=== PATIENT | female | born 1930 | race Caucasian/White ===

== ENCOUNTER 2018-08-03 10:52 | Inpatient (IN) ==
[2018-08-03] MEDS ORDERED: NS 1,000 ML IV ONE (11:15)
[2018-08-03 11:48] LABS: BASO# 0.04 X1000 (0.0-0.2); BASO% 0.4 % (0.0-0.8); EOS# 0.35 X1000 (0.0-0.7); EOS% 3.2 % (0.0-10.0); HEMATOCRIT 43.9 % (37.0-47.0); HEMOGLOBIN 14.4 g/dL (12.0-16.0); IMM GRAN# 0.03 X1000 (0.0-0.04); IMM GRAN% 0.3 % (0.0-0.5); LYMPH# 1.23 X1000 (1.2-3.4); LYMPH% 11.1 % (20.5-51.1); MCH 26.4 PG (27-31); MCHC 32.8 g/dL (33-37); MCV 80.4 FL (81-99); MONO# 1.41 X1000 (0.11-0.59); MONO% 12.7 % (1.7-9.3); MPV 12.1 FL (7.4-10.4); NEUT# 8.04 X1000 (1.4-6.5); NEUT% 72.3 % (42.2-75.2); PLT 144 X1000 (130-400); RBC 5.46 XMIL (4.2-5.4); RDW 18.5 % (11.5-14.5)
[2018-08-03 11:59] LABS: ALBUMIN 3.3 g/dL (3.5-5.0); CALCIUM 8.5 mg/dL (8.8-10.2); CREATININE 1.1 mg/dL (0.5-0.9); POTASSIUM 3.3 mmol/L (3.5-5.1); TOTAL BILIRUBIN 0.8 mg/dL (0.20-1.00)
--- NOTE | 2018-08-03 12:14 | Diag Imaging Result Doc PS360 ---
EXAM: CHEST-2 VIEWS HISTORY: weakness TECHNIQUE: Chest two views COMPARISON: 07/24/2018 FINDINGS: The lungs are well expanded. The heart is not enlarged. The vessels are not distended. There are mild increased interstitial markings similar to the prior exam and believed to be fibrosis. No pleural effusions. Moderate scoliosis. Severe atherosclerosis. IMPRESSION: Stable chest. Electronically signed by Fernando Loyola 08/03/2018 12:11 PM
[2018-08-03 13:23] LABS: BILIRUBIN URINE NEGATIVE (NEGATIVE); BLOOD URINE 2+ (NEGATIVE); CLARITY SLIGHTLY CLOUDY (CLEAR); COLOR YELLOW; GLUCOSE URINE NEGATIVE (NEGATIVE); KETONE URINE NEGATIVE (NEGATIVE); URINE SOURCE CLEAN CATCH
--- NOTE | 2018-08-03 13:23 | EKG Report ---
Test Performed on : 08/03/2018 11:19:46 AM Test Reason : weakness Blood Pressure : / mmHG Vent. Rate : 129 BPM Atrial Rate : 326 BPM P-R Int : 000 ms QRS Dur : 082 ms QT Int : 336 ms P-R-T Axes : 000 007 044 degrees QTc Int : 492 ms Atrial fibrillation. with rapid ventricular response. Nonspecific T wave abnormality Abnormal ECG No previous ECGs available Unconfirmed Result
[2018-08-03 13:24] LABS: LEUKOCYTES URINE 2+ (NEGATIVE); NITRITE URINE NEGATIVE (NEGATIVE); PROTEIN URINE 1+(30 mg/dL) mg/dL (NEGATIVE); UROBILINOGEN URINE 1 mg/dL
[2018-08-03 13:31] LABS: URINE BACTERIA 3+ /HFP; URINE EPITHELIAL CELLS >10 /HPF (<10); URINE WBC 20-40 /HPF (<10)
[2018-08-03 13:32] LABS: URINE SMALL ROUND CELLS TRANSITIONAL PRESENT; URINE YEAST PRESENT /HPF
--- NOTE | 2018-08-03 13:34 | Diag Imaging Result Doc PS360 ---
EXAM: LUMBAR SPINE 2-VIEWS INDICATION: lower back pain TECHNIQUE: 3 views COMPARISON: None. FINDINGS: There is advanced degenerative disc disease at every lumbar level with loss of disc space height and marginal osteophyte formation. There is also multilevel facet arthropathy that is worst at the lower levels. There is associated dextroscoliosis. There is no discrete fracture, subluxation, or significant intrinsic osseous lesion, otherwise. There is extensive atherosclerotic calcification. Surrounding soft tissues are essentially unremarkable, otherwise. 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 No evidence of acute osseous abnormality. Electronically signed by Kj Cavazos 08/03/2018 1:32 PM
[2018-08-03] MEDS ORDERED: CARDIZEM IV ONE (14:17)
[2018-08-03] MEDS ORDERED: ROCEPHIN 1 GM in NS 50 ML IV ONE (14:19)
--- NOTE | 2018-08-03 14:23 | PROVIDER DOCUMENTATION ---
This chart was entered by Jordyn Turner Scribe, acting as scribe for Danis Narvaez CRNP. HPI-General Adult - General Chief Complaint: Weakness Stated Complaint: FALL Time Seen by Provider: 08/03/18 11:08 Source: patient Allergies/Adverse Reactions: Patient Allergies Allergy/AdvReac Type Severity Reaction Status Date / Time Sulfa (Sulfonamide Allergy Unknown Verified 08/03/18 11:46 Antibiotics) Home Medications: Home Medication List Medication Instructions Recorded Confirmed Last Taken Type Aspirin 1 tab PO DAILY 08/03/18 08/03/18 Unknown History Buspirone [Buspar] 1 tab PO BID 08/03/18 08/03/18 Unknown History Clonidine HCl 1 tab PO Q8H PRN 08/03/18 08/03/18 Unknown History Diphenoxylate/Atropine [Lomotil] 1 tab PO Q8H PRN 08/03/18 08/03/18 Unknown History Hydrochlorothiazide 1 cap PO DAILY PRN 08/03/18 08/03/18 Unknown History Levothyroxine [Synthroid] 1 tab PO DAILY 08/03/18 08/03/18 Unknown History Lisinopril 1 tab PO DAILY 08/03/18 08/03/18 Unknown History Promethazine [Phenergan] 0.5 - 1 tab PO Q8H PRN 08/03/18 08/03/18 Unknown History Simvastatin 40 mg PO QPM 08/03/18 08/03/18 Unknown History - History of Present Illness -Gen Adult Nature of Presenting Problems: 88 yof presents to the ed with c/o weakness, nausea and diarrhea and weight loss. pt sts fell 2 days prior Location of Pain/Injury: reports: generalized (weakness) Pain Radiation: reports: no radiation Quality of Pain: reports: aching Severity: reports: moderate Onset/Duration: reports: other (3 weakness) Timing: reports: still present Context/Activities at Onset: reports: light activity Modifying Factors: improves with: nothing Associated Symptoms: reports: diarrhea, loss of appetite, muscle aches, nausea, weakness. denies: back/neck pain, chest pain, fatigue, fever/chills, shortness of breath Similar Symptoms Previously?: Yes Recently seen or treated by another doctor?: No Review of Systems - Adult - REVIEW OF SYSTEMS - ADULT Constitutional: reports: see HPI, fatique, weight loss (25lb in 2 months) Eyes: reports: no symptoms reported Ears, Nose, Mouth & Throat: reports: no symptoms reported Cardiovascular: denies: chest pain, palpitations Respiratory: denies: cough, shortness of breath, wheezing Gastrointestinal: reports: see HPI, diarrhea, nausea. denies: abdominal pain Genitourinary: reports: no symptoms reported Musculoskeletal: reports: see HPI, muscle weakness. denies: back pain, neck pain Integumentary: reports: no symptoms reported Neurological: denies: dizziness/vertigo, headache/migraines Psychiatric: reports: no symptoms reported Endocrine: reports: no symptoms reported Hematologic/Lymphatic: reports: no symptoms reported Allergic/Immunologic: reports: no symptoms reported All Other Systems: Reviewed and Negative Past History - Adult - PAST MEDICAL HISTORY-ADULT Review of Records: reports: Old Records Reviewed, Nursing Assessment Review, Medications Reviewed, Social history reviewed & non-contributory. Major Childhood Illnesses: reports: denies history Cardiovascular: reports: HTN, hyperlipidemia Respiratory: reports: asthma Gastrointestinal: reports: GERD Obstetrical/Gynecological: reports: denies history Genitourinary: reports: denies history Musculoskeletal: reports: denies history Neurological: reports: denies history Endocrine/Immune: reports: thyroid disorder, other (AAA) Other Conditions: reports: denies history - PRIOR SURGERIES/PROCEDURES Surgical/Procedure History: reports: appendectomy - IMMUNIZATION STATUS Childhood Immunizations: See Nurse Assessment Flu Vaccine: See Nurse Assessment - FAMILY HISTORY Family History: reviewed, not pertinent - SOCIAL HISTORY Smoking: denies Substance Use: denies Living Situation: family Physical Exam-General - PHYSICAL EXAM-ADULT Initial Vital Signs Reviewed: Yes - CONSTITUTIONAL General Appearance: alert, no apparent distress, thin. negative: appears well - EYES Eyes: PERRL/EOMI, pink conjunctivae - HEAD, EARS, NOSE, MOUTH & THROAT HENMT: moist mucous membranes, normal ENT inspection - NECK Neck: non-tender, full range of motion, supple, normal inspection - RESPIRATORY Respiratory: chest non-tender, lungs clear, normal breath sounds - CARDIOVASCULAR Cardiovascular: normal peripheral pulses, irregularly irregular (115) - GASTROINTESTINAL (ABDOMEN) Abdominal Exam: normal bowel sounds, non tender, soft - LYMPHATIC Lymphatic: no adenopathy - MUSCULOSKELETAL Back Exam: scoliosis, vertebral tenderness (lumbar) Extremity: normal range of motion, non-tender, normal inspection - SKIN Integumentary: normal color, normal turgor, warm/dry - NEUROLOGIC Neurologic: grossly normal, no motor/sensory deficits - PSYCHIATRIC Psych/Mental Status: normal mood/affect, normal thought content, normal thought process, oriented x 3 Progress - PLAN OF CARE/RESULTS Progress/Plan/Lab Results: Vital Signs - 8 hr 08/03/18 10:57 Temperature 97.1 F L Pulse Rate 115 H Respiratory Rate 18 Blood Pressure 99/72 O2 Sat by Pulse Oximetry 96 Orders Category Date Time Status Cardiac Monitoring DIRECTED Care 08/03/18 11:26 Active Nursing- Obtain EKG once Care 08/03/18 11:13 Active Saline Loc NOW Care 08/03/18 11:27 Active CHEST-2 VIEWS [RAD] Stat Exams 08/03/18 11:13 Ordered LUMBAR SPINE 2-VIEWS [RAD] Stat Exams 08/03/18 11:13 Ordered CBC WITH DIFF [HEME] Stat Lab 08/03/18 11:27 Ordered COMPREHENSIVE METABOLIC PANEL [CHEM] Stat Lab 08/03/18 11:[address] W/POSS RFLX CULT [URINALYSIS] Stat Lab 08/03/18 11:13 Uncollected 0.9% Sodium Chloride Inj [Ns] 1,000 ml Med 08/03/18 11:15 Active IV 125 mls/hr EKG [EKG] Stat Ther 08/03/18 11:13 Ordered Result Diagrams: 08/03/18 11:20 08/03/18 11:20 - REASSESSMENT Reassessment #1 Time Reassessed: 13:17 Status: improving Reassessment #2 Time Reassessed: 13:47 (explained results with pt and family. Family reports pt is having frequent diarrhea x 1.5 month. Reports she is taking Lomotil with no relief. Denies any recent antibiotic use) Reassessment #3 Time Reassessed: 14:18 (Made aware of possible admission. Pt and family agree) - EKG 1 Time of EKG reading by physician:: 11:19 EKG Read and Signed by:: Brannon Tate EKG Interpretation (*Must complete 3 of following elements*): Abnormal Rate: 129 Rhythm: afib with rvr [place]: normal QRS: normal [place] Interval: normal Comments: nonspecific T wave abnormality - XRAY 1 XRAY: Bilateral XRAY Study: Chest Impression: See EMR Report (The lungs are well expanded. The heart is not enlarged. The vessels are not distended. There are mild increased interstitial markings similar to the prior exam and believed to be fibrosis. No pleural effusions. Moderate scoliosis. Severe atherosclerosis. IMPRESSION: Stable chest. Electronically signed by Fernando Loyola 08/03/2018 12:11 PM) 2 XRAY Study: Lumbar Spine Impression: See EMR Report (There is advanced degenerative disc disease at every lumbar level with loss of disc space height and marginal osteophyte formation. There is also multilevel facet arthropathy that is worst at the lower levels. There is associated dextroscoliosis. There is no discrete fracture , subluxation, or significant intrinsic osseous lesion, otherwise. There is extensive atherosclerotic calcification. Surrounding soft tissues are essentially unremarkable, otherwise. 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 No evidence of acute osseous abnormality. Electronically signed by Kj Cavazos 08/03/2018 1:32 PM) - CONSULTS/PCP/HOSPITALIST Notification #1 *Consult/PCP/Hospitalist*: Dr Tate Time Discussed: 13:40 (concerning results, diarrhea, and weight loss) Consult Disposition: F/U in office #2 Consult: Dr Tate Time Discussed: 14:18 (Concerning afib w/ rvr) Consult Disposition: Admit Departure - Departure Date of Disposition Decision: 08/03/18 Time of Disposition Decision: 14:20 DIAGNOSIS: Atrial fibrillation with RVR UTI (urinary tract infection) Qualifiers: Urinary tract infection type: site unspecified Hematuria presence: without hematuria Qualified Code(s): N39.0 - Urinary tract infection, site not specified Diarrhea Qualifiers: Diarrhea type: unspecified type Qualified Code(s): R19.7 - Diarrhea, unspecified Disposition: ADMITTED INPATIENT 09 Certified Medical Emergency: Emergent Condition: Fair Referrals and Follow-Ups: Brannon Tate MD [Primary Care Provider] - - Critical Care Note This patient required my direct & personal management of CC.: Yes Total Time (mins): 38 Critical Care Statement: This patient required my direct personal management to treat or rule out processes, the absence of which, could potentiallly result in sudden, clinically significant life or limb threatening deterioration. Attestation - Physician/ CASSIDY Attestation Patient care was provided by Advanced Practice Provider:: Yes Advanced Practice Provider:: Danis Narvaez Advanced Practice Provider documentation review:: The Mid-level provider documentation, treatment plan and medical decision making was reviewed by the physician who agrees with all treatment and medical decision making by the MLP. The physician spent face to face time with patient:: No Advanced Practice Provider documentation review:: Supervising physician onsite and consulted in the evaluation and care of this patient. The physician did not have a face to face encounter with the patient. This chart was documented by the indicated scribe, (Jordyn Turner Scribe) and accurately reflects the services I performed and decisions made by me, Danis Narvaez, ADOLFO, as attested by the provider's signature.
[2018-08-03 18:33] LABS: INR 1.27; PROTIME 16.5 Seconds (11.0-16.0); PTT 29.2 Seconds (22.3-41.8)
[2018-08-03] MEDS ORDERED: LANOXIN IV ONE (18:49)
[2018-08-03] MEDS ORDERED: HYDROCHLOROTHIAZIDE PO PRN ×2 (18:50→19:00)
[2018-08-03] MEDS ORDERED: CATAPRES PO PRN (18:50)
[2018-08-03] MEDS ORDERED: PHENERGAN PO PRN (18:50)
[2018-08-03] MEDS ORDERED: CARDIZEM PO ONE (18:53)
[2018-08-03 19:32] LABS: FREE T4 1.89 ng/dL (0.93-1.70); TSH 1.49 uIUmL (0.27-4.20)
[2018-08-03] MEDS: CARDIZEM PO SCH (22:09)
[2018-08-03] MEDS: ZOCOR PO SCH (22:09)
[2018-08-03] MEDS: BUSPAR PO SCH (22:09)
[2018-08-03] MEDS: BENADRYL PO SCH (22:14)
[2018-08-04] MEDS: SYNTHROID PO SCH (06:49)
--- NOTE | 2018-08-04 07:03 | EKG Report ---
Test Performed on : 08/04/2018 00:10:38 AM Test Reason : BRADYCARDIA Blood Pressure : / mmHG Vent. Rate : 051 BPM Atrial Rate : 061 BPM P-R Int : 000 ms QRS Dur : 084 ms QT Int : 458 ms P-R-T Axes : 000 -21 254 degrees QTc Int : 422 ms Atrial fibrillation. with slow ventricular response. ST & T wave abnormality, consider inferior ischemia ST & T wave abnormality, consider anterolateral ischemia Abnormal ECG When compared with ECG of 03-AUG-2018 11:19, (Unconfirmed) Vent. rate has decreased BY 78 BPM T wave inversion more evident in Anterior leads Unconfirmed Result
[2018-08-04] MEDS: PRINIVIL PO SCH (09:55)
[2018-08-04] MEDS: ASPIRIN PO SCH (09:55)
[2018-08-04] MEDS: BUSPAR PO SCH ×2 (09:55→23:40)
[2018-08-04] MEDS: CARDIZEM PO SCH ×2 (09:56→23:40)
[2018-08-04] MEDS ORDERED: LANOXIN PO ONE (19:06)
[2018-08-04] MEDS ORDERED: CARDIZEM CD PO ONE (19:07)
--- NOTE | 2018-08-04 22:33 | ECHO REPORT ---
ORDER DATE: 08/03/2018 MEASUREMENTS: Left ventricular end-diastolic 4.6, septal thickness 1.2, posterior wall thickness 1.1, aortic root 3.5, left atrium 5.1. SUMMARY: 1. Fair quality study. Intravenous echo contrast agent Definity was utilized to enhance endocardial definition. 2. Aortic valve demonstrates very mild sclerotic change with adequate opening on 2-dimensional images. Fair quality study. Intravenous echo contrast agent Definity was utilized to enhance endocardial definition. 3. Aortic valve without evidence of structural abnormality and opens adequately on 2-dimensional images. Peak gradient across aortic valve is less than 10 mmHg. There is mild aortic regurgitation. Mitral and tricuspid valves are without evidence of structural abnormality. There is moderate to severe mitral regurgitation and mild to moderate tricuspid regurgitation. Estimated systolic PA pressure by Doppler is 30 to 35 mmHg suggesting mild pulmonary hypertension. Pulmonic valve not well demonstrated. The aortic root is normal in size. 4. Normal left ventricular chamber size with borderline concentric left hypertrophy is demonstrated. Estimated left ejection fraction approximately 20% in the setting of global hypokinesis. Moderate left atrial enlargement is demonstrated. The right atrium is mildly enlarged. Right ventricle is grossly normal in size with grossly preserved right ventricular systolic function. 5. No pericardial effusion. 6. Appearance of inferior vena cava suggests normal central venous pressure. cc: MD Brannon Jarvis MD
[2018-08-04] MEDS: BENADRYL PO SCH (23:40)
[2018-08-04] MEDS: ZOCOR PO SCH (23:40)
--- NOTE | 2018-08-05 01:57 | EKG Report ---
Test Performed on : 08/04/2018 6:43:17 PM Test Reason : ER Blood Pressure : / mmHG Vent. Rate : 110 BPM Atrial Rate : 119 BPM P-R Int : 000 ms QRS Dur : 088 ms QT Int : 340 ms P-R-T Axes : 000 008 258 degrees QTc Int : 460 ms Atrial fibrillation. with rapid ventricular response. Nonspecific ST and T wave abnormality Abnormal ECG When compared with ECG of 04-AUG-2018 00:11, (Unconfirmed) Vent. rate has increased BY 65 BPM T wave inversion no longer evident in Anterior leads Confirmed by Brannon Tate MD ([id number]) on 08/05/2018 9:45:04 AM
[2018-08-05] MEDS: SYNTHROID PO SCH (06:35)
[2018-08-05] MEDS: CARDIZEM PO SCH (09:28)
[2018-08-05] MEDS: PRINIVIL PO SCH (09:28)
[2018-08-05] MEDS: BUSPAR PO SCH ×2 (09:28→20:53)
[2018-08-05] MEDS: ASPIRIN PO SCH (09:28)
[2018-08-05 10:46] LABS: AGAP 10; ALBUMIN 3.2 g/dL (3.5-5.0); ALKALINE PHOSPHATASE 90 U/L (32-104); BUN 9 mg/dL (8-22); CALCIUM 7.9 mg/dL (8.8-10.2); CHLORIDE 96 mmol/L (98-107); COSMO 283; CREATININE 0.8 mg/dL (0.5-0.9); ESTIMATED GFR > 60; GLUCOSE 117 mg/dL (70-104); GOT 35 U/L (10-30); GPT 22 U/L (10-36); POTASSIUM 2.8 mmol/L (3.5-5.1); SODIUM 142 mmol/L (136-145); TCO2 36 mmol/L (25-35); TOTAL PROTEIN 5.8 g/dL (6.3-8.3)
[2018-08-05] MEDS ORDERED: KLOR-CON PO ONE ×3 (15:08→19:06)
--- NOTE | 2018-08-05 16:07 | EKG Report ---
Test Performed on : 08/05/2018 12:36:13 PM Test Reason : emboli Blood Pressure : / mmHG Vent. Rate : 083 BPM Atrial Rate : 078 BPM P-R Int : 000 ms QRS Dur : 086 ms QT Int : 386 ms P-R-T Axes : 000 -63 254 degrees QTc Int : 453 ms Atrial fibrillation. Left anterior fascicular block Septal infarct , age undetermined ST & T wave abnormality, consider inferolateral ischemia Abnormal ECG When compared with ECG of 04-AUG-2018 18:43, Left anterior fascicular block is now present Inverted T waves have replaced nonspecific T wave abnormality in Inferior leads Unconfirmed Result
--- NOTE | 2018-08-05 19:47 | CONSULTATION ---
DATE OF CONSULTATION: 08/05/2018 CARDIOLOGY CONSULTATION: IMPRESSION: 1. Atrial fibrillation, duration not known. Rate currently controlled. 2. 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 3. Hypertension. 4. Hyperlipidemia. 5. Peripheral vascular disease with history of abdominal aortic aneurysm repair. RECOMMENDATIONS: 1. Given patient's age and limited functional status, conservative cardiovascular management appears most appropriate. 2. Patient's CHADS-Vasc score is 5, consistent with significant thromboembolic risk. The rationale for anticoagulation and potential hazards were discussed with the patient. Recommend switching to Eliquis for long-term anticoagulation. Appropriate dose would appear to be 2.5 mg twice daily given her age over 81 and her weight 100 pounds. 3. Given severe cardiomyopathy, suggest switching from clonidine/diltiazem regimen for blood pressure to carvedilol. HISTORY: This 88-year-old white female with past history of hypertension, hyperlipidemia, peripheral vascular disease, previous abdominal aortic aneurysm repair and remote and previous smoking in the past was recently admitted with symptoms of nausea and fatigue/weakness. She was found to be in atrial fibrillation with moderate tachycardia. She suspects her atrial fibrillation had begun several weeks ago. She is not aware of any palpitations. There has been no angina. There has been no orthopnea. Echocardiography was obtained which indicated a left ejection fraction of 20%. Cardiology is consulted. PAST MEDICAL HISTORY: Includes: 1. Hypertension. 2. Hyperlipidemia. 3. Peripheral vascular disease with previous abdominal aortic aneurysm repair. 4. Gastroesophageal reflux disease. 5. Status post thyroid surgery. 6. Status post appendectomy. ALLERGIES: She is allergic or intolerant to sulfa. MEDICATIONS PRIOR TO ADMISSION: As listed. SOCIAL HISTORY: She is and lives by herself in [facility]. She does have a nephew in the area. Her son lives in [place] and is planning on taking her back to [place]. She quit smoking several years ago. She does not use alcohol. FAMILY HISTORY: Negative for premature coronary disease. REVIEW OF SYSTEMS: Pulmonary: Noteworthy for some exertional shortness of breath, but no orthopnea or cough. Gastrointestinal: Noncontributory beyond history of present illness. Constitutional: Noncontributory beyond history of present illness. Remainder of review of systems negative/noncontributory beyond history of present illness, with 14 total systems reviewed. PHYSICAL EXAMINATION: General: A thin elderly white female in no distress on room air. Vital Signs: Blood pressure 126/61, heart rate 86 and regular. Oxygen saturation 98%. HEENT: Extraocular movements appear intact. Mucous membranes are moist. Neck: Supple, without jugular venous distention. There are no carotid bruits. Chest: Clear to auscultation bilaterally. Cardiac: Reveals an irregular rate and rhythm without appreciable murmur or gallop. Abdomen: Soft, nontender. Bowel sounds are normal. Extremities: Without edema. Neurologic: Reveals her to be alert and fully oriented. Speech is fluent. She moves all 4 extremities equally well. Skin: Warm and dry. Psychiatric: Psych exam reveals her mood to be appropriate. PERTINENT DATA: Twelve-lead EKG demonstrates atrial fibrillation, left anterior fascicular block and nonspecific ST and T-wave abnormality. Echocardiography indicates left ventricular ejection fraction of 20%. LABORATORY DATA: Includes sodium 142, potassium 2.8, chloride 96, carbon dioxide 36, BUN 9, creatinine 0.8, glucose 117. TSH 1.49, free T4 1.89. Troponin T less than 0.01. White blood cell count 11.1, hematocrit 43.9, hemoglobin 14.4, platelet count 144,000. cc: MD Brannon Jarvis MD
[2018-08-05] MEDS: BENADRYL PO SCH (20:53)
[2018-08-05] MEDS: ZOCOR PO SCH (20:53)
[2018-08-05] MEDS: KLOR-CON PO SCH (20:53)
[2018-08-05] MEDS: COREG PO SCH (20:53)
[2018-08-06] MEDS: SYNTHROID PO SCH ×2 (05:31→06:39)
[2018-08-06] MEDS: COREG PO SCH ×2 (09:11→20:44)
[2018-08-06] MEDS: KLOR-CON PO SCH ×2 (09:11→20:44)
[2018-08-06] MEDS: BUSPAR PO SCH ×2 (09:11→20:43)
[2018-08-06] MEDS: PRINIVIL PO SCH (09:12)
[2018-08-06] MEDS ORDERED: COREG PO ONE (14:15)
--- NOTE | 2018-08-06 14:19 | PROGRESS NOTE ---
DATE: 08/06/2018 SUBJECTIVE: She was admitted from the ER with weakness, falling, COPD, hypertension, dyslipidemia, and thyroid disease. Generally, having diarrhea and losing weight. In the ER heart rate is 133 with EKG showing atrial fibrillation, which is something she has not had previously. OBJECTIVE: Her vital signs on 08/04/2018 - temperature was 97.5, pulse rate was 89, respirations 18, blood pressure 142/79. She had some slower rates during the evening. They withheld a dose of Cardizem. LABORATORY DATA: From the previous day showed lots of epithelial cells in her urine, 20 to 40 WBCs, 10 to 20 RBCs, 3+ bacteria. Cultures were drawn on her. She did not really have much in the way of symptoms of dysuria, but her diarrhea is miraculously gone. We have been trying to get samples for this nonstop diarrhea that has obviously stopped. ASSESSMENT/PLAN: We are giving her some medications, including her thyroid, which may play a role, but her TSH is not that high. She is hypokalemia. Hydrochlorothiazide could be contributing to her rapid rate. We have not used any Lomotil or Phenergan. She takes Benadryl orally at bedtime. She is on carvedilol 6.25 twice a day, hydrochlorothiazide 12.5, 150 levothyroxine, and 40 of lisinopril and is getting some potassium replacement, continuing her Zocor. We also are giving her diltiazem 120 twice a day and supplementing her potassium. She continues to not have diarrhea and is doing relatively well. cc: Brannon Tate MD
--- NOTE | 2018-08-06 14:28 | PROGRESS NOTE ---
DATE: 08/05/2018 SUBJECTIVE: She was admitted from the ER with atrial fibrillation, rapid, new onset, but in a familiar setting COPD'r, who has issues with her heart. We did an echo and it showed that she had a 20% left ventricular ejection fraction and had severe MR and some AI, , along with persistent atrial fibrillation that has been jumping around a bit. OBJECTIVE: Her vital signs today, she is afebrile, pulse was 76, blood pressure 132/85. According to the nurses her heart rate goes down at night and they hesitate to put her on her Cardizem. We spoke with Dr. Bejarano and he is in agreement. LABORATORY DATA: So far, microbiology is all negative. No growth in her blood or urine. Sodium 142, potassium 2.8, chloride 96, CO2 36, BUN 9, creatinine 0.8, GFR greater than 60. BUN/creatinine ratio 11. Glucose 117. Her lactates were fine. TSH was fine. ASSESSMENT/PLAN: We are going to control her atrial fibrillation with carvedilol 6.25 twice a day or 12.5 twice a day, no Lanoxin. We are going to stop her clonidine. We are going to stop her Cardizem. We are looking for placement as the family is interested in taking her back to [place] where she will be in a more controlled situation and not living alone part of the time. The patient is in agreement with that. She wants to go to Assisted Living. All the while, we will try to manage her heart rate. cc: Brannon Tate MD
--- NOTE | 2018-08-06 14:56 | HISTORY AND PHYSICAL ---
HISTORY OF PRESENT ILLNESS: The patient is an 88-year-old, white female, clinic patient of [facility], who has thyroid disease, COPD, hypertension, and dyslipidemia. She presented to the ER complaining of just general weakness, nausea, diarrhea, and weight loss. She said she has gotten weak to the point that she has fallen. There is no bleeding, bloody stools, black stools, and she has not really been vomiting. She alleges to have lost 25 pounds in the last two months. She denies any specific weakness, she is just generally weak all over with difficulty getting up and getting about. She has lost her appetite. She has muscle weakness and nausea. She has not been around anybody with problems. She has historically had AAA repair and that has not been a problem. She does not have any significant belly pain in her abdomen and in the scaphoid. Her medications, none of which seem to cause diarrhea, she has recently had some Lomotil added to her regimen along with some Phenergan, but continues to be weak. ALLERGIES: She is allergic to sulfa drugs. CURRENT MEDICATIONS: Aspirin 81 mg daily, BuSpar 10 mg b.i.d., clonidine 0.1 tablet q eight hours p.r.n., Lomotil, Phenergan p.r.n., hydrochlorothiazide one capsule daily, Synthroid 150 mcg daily, lisinopril 40 daily, simvastatin 40 daily. Looking at her medications, some of the labels have been worn off and it may be that she is actually double taking Zocor. REVIEW OF SYSTEMS: She has fatigue and weight loss as previously reported. Eyes: No change in visual acuity, no blind spots, no scintillations, no change in focus. Ears, nose, mouth, and throat: No sore throat or sinusitis. Cardiovascular: She denies any chest pain or palpitations. She has some trace edema. No PND or orthopnea. No claudication. Respiratory: She has some COPD, increased AP diameter, cough, shortness of breath, and wheeze. Gastrointestinal: She denies any abdominal pain. She has a defect in her abdomen from her aneurysm, a large hernia periodically. Genitourinary: No dysuria, hematuria, polyuria or pyuria. Musculoskeletal: Generalized weakness. No specific problems. Denies back pain or neck pain, gout, rheumatoid arthritis, or osteoarthritis of any consequence. Skin: No lesions. No pruritus. Neurologic: She denies any dizziness, vertigo, headaches, or migraines. She does not really feel orthostatic dizziness. Psychiatric: Negative, other than occasional anxiety. Endocrine: No diabetes. She does have thyroid hormone replacement, recently had her thyroid reduced from 175 to 150. Allergies: She has no significant allergy history. PAST MEDICAL HISTORY: She has had hypertension and dyslipidemia. She has a history of asthma, COPD, and GERD. She has had thyroid problems. PAST SURGICAL HISTORY: She has had AAA repair. She has had a previous appendectomy. SOCIAL HISTORY: She denies smoking currently. No substance abuse. She lives with her daughter, I believe, but she works and there is concern about patient falling around. PHYSICAL EXAMINATION: VITAL SIGNS: At the time of admission her temperature was 97, pulse was 115, respiratory rate was 18, blood pressure 99/72. HEENT: Head was normocephalic. Eyes were PERRL. EOMs intact. SC clear. Nares patent. Oropharynx negative. NECK: Without jugular venous distention. Midline trachea. No lymphadenopathy. No thyromegaly. RESPIRATORY: Diminished breath sounds. Bony chest. Increased AP diameter. Flattened diaphragms. CARDIOVASCULAR: She had an irregular rate, which she has not had previously and appears to be in atrial fibrillation. No significant murmurs. Trace edema around her ankles. ABDOMEN: Normal bowel sounds. Nontender. Soft. LYMPHATICS: Negative for lymphadenopathy. MUSCULOSKELETAL: She has some scoliosis, vertebral tenderness, otherwise negative. SKIN: Negative. NEUROLOGICAL: No focal neurological deficits. No ataxia. PSYCHIATRIC: Normal. ASSESSMENT: So, she was admitted to the hospital with a history of diarrhea, weakness, falls and new onset atrial fibrillation with background history of hypertension, dyslipidemia, thyroid disorder, and chronic obstructive pulmonary disease. She has an abdominal aortic aneurysm as well. cc: Brannon Tate MD
--- NOTE | 2018-08-06 18:12 | EKG Report ---
Test Performed on : 08/06/2018 6:01:16 PM Test Reason : RHYTHM CHANGE Blood Pressure : / mmHG Vent. Rate : 125 BPM Atrial Rate : 113 BPM P-R Int : 000 ms QRS Dur : 078 ms QT Int : 310 ms P-R-T Axes : 000 -17 258 degrees QTc Int : 447 ms Atrial fibrillation. with rapid ventricular response. Septal infarct (cited on or before 05-AUG-2018) ST & T wave abnormality, consider inferior ischemia ST & T wave abnormality, consider anterolateral ischemia Abnormal ECG When compared with ECG of 05-AUG-2018 12:36, (Unconfirmed) Vent. rate has increased BY 42 BPM Serial changes of evolving Septal infarct present Unconfirmed Result
[2018-08-06 19:29] LABS: ALBUMIN 2.6 g/dL (3.5-5.0); CALCIUM 7.2 mg/dL (8.8-10.2); CREATININE 0.9 mg/dL (0.5-0.9); POTASSIUM 3.1 mmol/L (3.5-5.1); TOTAL BILIRUBIN 0.7 mg/dL (0.20-1.00)
[2018-08-06] MEDS: ZOCOR PO SCH (20:44)
[2018-08-06] MEDS: BENADRYL PO SCH (20:44)
[2018-08-07] MEDS: SYNTHROID PO SCH ×2 (05:47→06:15)
[2018-08-07] MEDS: BUSPAR PO SCH ×2 (09:53→22:56)
[2018-08-07] MEDS: KLOR-CON PO SCH ×2 (09:53→22:56)
[2018-08-07] MEDS: PRINIVIL PO SCH (09:53)
[2018-08-07] MEDS: COREG PO SCH ×2 (09:53→22:55)
[2018-08-07] MEDS: LOMOTIL PO PRN (14:18)
[2018-08-07] MEDS ORDERED: KLOR-CON PO ONE (17:46)
[2018-08-07] MEDS ORDERED: MAGNESIUM SULFATE 2 GM/S.W.I. 2 GM/50 ML IVPB IV ONE (18:21)
--- NOTE | 2018-08-07 20:09 | CARDIOLOGY PROGRESS NOTE ---
DATE: 08/07/2018 SUBJECTIVE: Ms. Ibanez has no complaints today. We are called back to evaluate a episode of rapid atrial fibrillation with aberrancy versus a short run of ventricular tachycardia of around 5 beats that occurred at 5:43 p.m. on the . She had no symptoms at that time. No pain complaints. PHYSICAL EXAMINATION: Patient is afebrile. Her heart rates have been elevated anywhere from the 80s to 120s. Blood pressure 130/78. General: She is in no acute distress. Cardiovascular: She is in a irregularly irregular, mildly tachycardic rhythm. She has no obvious murmurs. She has no S3. She has no lower extremity edema. Chest: Clear bilaterally. She has no increased work of breathing. Abdomen: Soft, nontender, nondistended. No obvious organomegaly. PERTINENT DATA: She had laboratory data today demonstrating a sodium of 140, potassium at 3.1, BUN 12, creatinine 0.9, her magnesium level is 1.8. ASSESSMENT: Ms. Ibanez is an 88-year-old female with a cardiomyopathy and atrial fibrillation. She had either a aberrant conduction episode of rapid atrial fibrillation or a nonsustained ventricular tachycardia episode of around 5 beats yesterday afternoon. PLAN: I will add in diltiazem at 30 b.i.d. to try to better rate control. We will continue on the beta-dontae. Her potassium is being repleted. I will try to replete her magnesium above 2. cc: MD Brannon Hurtado MD
[2018-08-07] MEDS ORDERED: MAG-OX PO ONE (20:15)
[2018-08-07] MEDS: CARDIZEM PO SCH (22:55)
[2018-08-07] MEDS: ZOCOR PO SCH (22:55)
[2018-08-07] MEDS: BENADRYL PO SCH (22:56)
[2018-08-08] MEDS: SYNTHROID PO SCH ×2 (05:27→07:14)
[2018-08-08 07:08] LABS: CALCIUM 7.3 mg/dL (8.8-10.2); CREATININE 0.9 mg/dL (0.5-0.9); MAGNESIUM 1.9 mg/dL (1.5-2.7); POTASSIUM 3.5 mmol/L (3.5-5.1)
[2018-08-08] MEDS: KLOR-CON PO SCH ×2 (08:14→22:44)
[2018-08-08] MEDS: COREG PO SCH ×2 (08:14→22:44)
[2018-08-08] MEDS: PRINIVIL PO SCH (08:14)
[2018-08-08] MEDS: BUSPAR PO SCH ×2 (08:14→22:44)
[2018-08-08] MEDS: CARDIZEM PO SCH ×2 (08:14→22:44)
[2018-08-08] MEDS ORDERED: MAG-OX PO ONE (09:00)
[2018-08-08] MEDS: ZOCOR PO SCH (22:44)
[2018-08-08] MEDS: BENADRYL PO SCH (22:45)
[2018-08-09] MEDS: SYNTHROID PO SCH (06:24)
[2018-08-09 06:55] LABS: BASO# 0.07 X1000 (0.0-0.2); BASO% 0.9 % (0.0-0.8); EOS# 0.37 X1000 (0.0-0.7); EOS% 4.9 % (0.0-10.0); HEMATOCRIT 44.4 % (37.0-47.0); HEMOGLOBIN 14.6 g/dL (12.0-16.0); IMM GRAN# 0.02 X1000 (0.0-0.04); IMM GRAN% 0.3 % (0.0-0.5); LYMPH# 1.13 X1000 (1.2-3.4); LYMPH% 14.9 % (20.5-51.1); MCH 26.6 PG (27-31); MCHC 32.9 g/dL (33-37); MCV 80.9 FL (81-99); MONO# 1.29 X1000 (0.11-0.59); MONO% 17.1 % (1.7-9.3); MPV 10.2 FL (7.4-10.4); NEUT# 4.68 X1000 (1.4-6.5); NEUT% 61.9 % (42.2-75.2); PLT 173 X1000 (130-400); RBC 5.49 XMIL (4.2-5.4); WBC 7.56 X1000 (4.8-10.8)
[2018-08-09 07:21] LABS: AGAP 9; ALBUMIN 2.9 g/dL (3.5-5.0); ALKALINE PHOSPHATASE 77 U/L (32-104); BUN 12 mg/dL (8-22); CALCIUM 7.5 mg/dL (8.8-10.2); CHLORIDE 103 mmol/L (98-107); COSMO 287; CREATININE 0.8 mg/dL (0.5-0.9); ESTIMATED GFR > 60; GLUCOSE 107 mg/dL (70-104); GOT 47 U/L (10-30); GPT 26 U/L (10-36); MAGNESIUM 2.2 mg/dL (1.5-2.7); POTASSIUM 3.9 mmol/L (3.5-5.1); SODIUM 144 mmol/L (136-145); TCO2 32 mmol/L (25-35)
[2018-08-09] MEDS: BUSPAR PO SCH (08:38)
[2018-08-09] MEDS: COREG PO SCH (08:38)
[2018-08-09] MEDS: CARDIZEM PO SCH (08:38)
[2018-08-09] MEDS: PRINIVIL PO SCH (08:39)
[2018-08-09] MEDS: KLOR-CON PO SCH (08:39)
[2018-08-09] MEDS: LOMOTIL PO PRN (11:42)
[2018-08-09 14:41] VITALS: BP 107/64
--- NOTE | 2018-08-09 15:43 | DISCHARGE SUMMARY ---
ADMISSION DATE: 08/03/2018 DISCHARGE DATE: 08/09/2018 HISTORY OF PRESENT ILLNESS: She presented initially to the office some time back and subsequent to the ER with some weight loss associated with her nausea, vomiting, and diarrhea. She alleges to have lost significant amount of weight. She was put in the hospital after being evaluated initially as an outpatient where she had a white count of 11,100, hematocrit of 44, platelet count of 141. Chemistry showed sodium of 140, potassium 3.3, chloride 97, CO2 30, BUN 21, creatinine 1.1, GFR estimation of 47. BUN/creatinine ratio was 19, a little high. Glucose was 114. LFTs were pretty much normal. Albumin was low at 3.3. CK was normal. Troponin was normal. TSH was 1.49. Plasma lactate was 1.3. Magnesium was 2. However, while attending to her in the ER, she jumped into atrial fibrillation. Never had been in atrial fibrillation previously. So, she was admitted for atrial fibrillation with rapid ventricular response, background history of COPD, history of diarrhea with some weight loss, some thyroid hormone replacement, and hypertension. She had an echo done on 08/03/2018 and it showed some elevated pressures. Her estimated systolic PA pressure was 30 to 35, suggesting mild pulmonary hypertension. She had a 20% left ventricular ejection fraction with global hypokinesis. No pericardial effusions. She had mild aortic regurgitation, mild to moderate tricuspid regurgitation. She had severe mitral regurgitation. So, her thyroid checked out to be normal but is something to reconsider if she continues to lose weight, we may have to back down on her thyroid. We attempted to control her rate initially with digoxin and Cardizem and subsequently trying different things. We ended up controlling her rate nicely with atrial fibrillation at 70s with carvedilol 12.5 b.i.d. and Cardizem 30 mg b.i.d. scheduled and hydrochlorothiazide 12.5, levothyroxine 150, lisinopril 40. Now, we are in the process of putting her into a rehab center and she is going in with cardiomyopathy with atrial fibrillation. She has also had some issues with some aberrant conduction episode which may represent rapid atrial fibrillation or nonsustained ventricular tachycardia. We are replacing her potassium and magnesium to see if these continue to be an issue. We are going to try to keep her magnesium above 2 and keep her potassium repleted. As far as blood thinners, we are going to wait and see how she does in the setting of rehab. If she is up and about and surefooted we will be more inclined to use these. Otherwise, if she is a super fall risk, will probably keep her off of them. She is going to [place] for some rehab and we will consider the anticoagulants with her son. cc: Brannon Tate MD
--- NOTE | 2018-08-09 15:47 | PROGRESS NOTE ---
DATE: 08/08/2018 On 08/08/2018 she was afebrile with a temperature of 97.8. Pulse was 88. Respirations were 20. BP was 105/52. O2 sat was 94%. She is in good spirits. She is sitting up in the bed and recognizes me. No evidence of any significant fluid accumulation. Lungs are clear with diminished breath sounds. She has a bony thorax. Extremities are with no edema. We are awaiting placement pending her rate staying as good as it is. cc: Brannon Tate MD
--- NOTE | 2018-08-09 16:03 | PROGRESS NOTE ---
DATE: 08/07/2018 OBJECTIVE: Her vital signs, temperature 98.5, pulse 124, respiratory rate 18, blood pressure 137/104, O2 saturation 98%. She was seen today in consult with Dr. Shaffer, who agrees with her having a cardiomyopathy, atrial fibrillation, and significant valvular insufficiencies and the possibility of the rhythm of the previous night, she had probably aberrantly conducted atrial fibrillation and with us replacing her potassium and magnesium, we hoped that this will resolve. Her magnesium is 1.8 and her potassium is 3.1. But, the short run was about five to six beats and was asymptomatic at the time that it happened. We are pending replacement therapy. cc: Brannon Tate MD
== END 2018-08-09 16:35 | DRG 309 ==
LOC: P.ED 10:52 → P.MEDSURG 14:59
PROVIDERS: ADMIT Internal Medicine; ATTEND Internal Medicine
CPT/HCPCS: 71020; 71046; 72100; 80048; 80053; 80162; 81001; 82550; 83605; 83735; 83880; 84439; 84443; 84484; 85025; 85610; 85730; 87040; 87088; 93005; 93010; 93306; 96365; 96375; 99285; A9270; C8929; J0696; J1160; J7030; Q9957